=== PATIENT | female | born 1990 | race Caucasian/White ===

== ENCOUNTER 2022-09-13 15:53 | Emergency (ER) | payer SELFPAY ==
[~2022-09-13] VITALS: Ht 172.7 cm; Wt 104.3 kg
[2022-09-13 16:00] VITALS: BP 142/98
--- NOTE | 2022-09-13 16:07 | NUR ---
PT AMBULATED TO ER BED 6
--- NOTE | 2022-09-13 16:17 | NUR ---
PA RODRIGUEZ AT BEDSIDE EVALUATING PT
[2022-09-13 16:34] LABS: BASOPHILS % (AUTO) 0.5 % (0.0-2.0); EOSINOPHILS # (AUTO) 0.2 K/uL (0-0.4); EOSINOPHILS % (AUTO) 3.7 % (0.0-4.0); HEMATOCRIT 34.1 % (36-48); HEMOGLOBIN 11.4 g/dL (12.0-16.0); LYMPHOCYTES # (AUTO) 2.1 K/uL (2.5-16.5); LYMPHOCYTES % (AUTO) 33.2 % (20.5-51.1); MEAN CORPUSCULAR HEMOGLOBIN 28 pg (27-31); MEAN CORPUSCULAR HGB CONC 33 g/dL (33-37); MEAN CORPUSCULAR VOLUME 84.4 fL (80-94); MONOCYTES # (AUTO) 0.7 K/uL (0.8-1.0); MONOCYTES % (AUTO) 10.5 % (1.7-9.3); NEUTROPHILS # (AUTO) 3.3 K/uL (1.8-7.7); NEUTROPHILS % (AUTO) 52.1 % (42.2-75.2); PLATELET COUNT (AUTO) 285 K/uL (140-450); RED BLOOD CELL COUNT(AUTO) 4.04 MIL/uL (4.20-5.40); RED CELL DISTRIBUTION WIDTH 14.7 % (11.6-13.7); WHITE BLOOD COUNT (AUTO) 6.3 K/uL (4.8-10.8)
[2022-09-13 16:50] LABS: ALBUMIN 3.7 g/dL (3.4-5.0); ANION GAP 7.8 (8-16); CARBON DIOXIDE 35.1 mmol/L (21-32); CREATININE 0.6 mg/dL (0.6-1.3); POTASSIUM 3.9 mmol/L (3.5-5.1); TOTAL BILIRUBIN 0.4 mg/dL (0.0-1.0)
--- NOTE | 2022-09-13 17:37 | NUR ---
IV removed, catheter intact and site benign. Applied folded 4x4 gauze and tape to stop bleeding.
[2022-09-13] MEDS ORDERED: CEPH-588 PO ×2 (17:38→18:13)
[2022-09-13] MEDS ORDERED: IBUP-2213 PO ×2 (17:38→18:13)
--- NOTE | 2022-09-13 17:52 | NUR ---
Patient discharged with v/s stable. Written and verbal after care instructions FOR CELLULITIS given and explained. Patient alert, oriented and verbalized understanding of instructions. Ambulatory with steady gait. All questions addressed prior to discharge. ID band removed. Patient advised to follow up with PMD. Rx of KEFLEX AND IBUPROFEN given.Opportunity to ask questions provided and answered.
== END 2022-09-13 17:52 | disposition home or self-care (01) ==
LOC: MED 15:53
DX: L03.116 Cellulitis of left lower limb (principal)
CPT/HCPCS: 36415; 80053; 85025; 93971; 99284; Q0092